=== PATIENT | female | born 1975 | race African-American/Black ===

== ENCOUNTER 2017-02-10 14:16 | Inpatient (IN) | payer MEDICAID ==
[~2017-02-10] VITALS: Ht 165.1 cm; Wt 90.0 kg
[2017-02-10 15:15] LABS: Basophils # (auto) 0 uL; DEFINITIVE VIEW TRANSMISSION; Eosinophils # (auto) 0.2 uL; Lymphocytes # (auto) 4.1 uL; Mean Platelet Volume 8.4 fL (7.4-10.4)
[2017-02-10 15:17] LABS: Basophils % (auto) 0.3 % (0.0-2.0); Eosinophils % (auto) 1.7 % (0.0-7.0); Hematocrit 33.1 % (36.0-46.0); Hemoglobin 10.3 g/dL (12.2-16.2); Lymphocytes % (auto) 30.2 % (10.0-50.0); Mean Corpuscular Hemoglobin 20.7 pg (28.0-32.0); Mean Corpuscular Volume 66.7 fL (80.0-100.0); Monocytes # (auto) 0.1 uL; Monocytes % (auto) 0.7 % (0.0-12.0); Neutrophils # (auto) 9.2 uL; Neutrophils % (auto) 67.1 % (37.0-80.0); Platelet Count (auto) 419 10^3/uL (140-450); Red Cell Distribution Width 18.8 % (11.6-16.0); White Blood Cell 13.8 10^3/uL (4.4-10.8)
[2017-02-10 15:36] LABS: Albumin 3.3 g/dL (3.4-5.0); BUN/Creatinine Ratio 11.3; Bilirubin, Total 0.6 mg/dL (0.2-1.0); Calcium 8.7 mg/dL (8.5-10.1); Potassium 3.7 mmol/L (3.5-5.1); Total Protein 7.3 g/dL (6.4-8.2)
[2017-02-10 15:37] LABS: Urine Bilirubin Negative (Negative); Urine Color Yellow (Yellow); Urine Glucose Normal (Normal); Urine Ketone TRACE (Negative); Urine Mucus FEW (None Seen); Urine Nitrite Negative (Negative); Urine RBC 763 /hpf (0 - 4); Urine Squamous Epithelial Cell FEW /hpf (<5)
[2017-02-10 15:44] LABS: Urine Blood 3+ /uL (Negative)
[2017-02-10 16:27] LABS: Platelet Estimate Adequate
[2017-02-10 16:29] LABS: Microcytosis Marked
[2017-02-10 16:30] LABS: Anisocytosis Moderate; Hypochromia Moderate; Ovalocytes MODERATE
[2017-02-10] MEDS ORDERED: KETOROLAC TROMETH 30 MG/ML 1ML VIAL IV ONE ×2 (16:45→20:00)
[2017-02-10] MEDS ORDERED: SODIUM CHLORIDE 0.9% 1,000 ML IV ONE (16:45)
[2017-02-10] MEDS ORDERED: LEVOFLOXACIN 500MG 100 ML IV ONE (16:45)
[2017-02-10] MEDS ORDERED: cefTRIAXone 1GM/50ML D5W 50 ML IV ONE ×2 (17:30→19:15)
[2017-02-10] MEDS ORDERED: LORazepam 0.5 MG TAB PO PRN (19:15)
[2017-02-10] MEDS ORDERED: MORPHINE SULF INJ 2 MG/ML SYRINGE 1ML IV PRN (19:15)
[2017-02-10] MEDS ORDERED: NITROGLYCERIN 0.4 MG SL TAB SL PRN (19:15)
[2017-02-10] MEDS ORDERED: TEMAZEPAM 15 MG CAP PO PRN (19:15)
[2017-02-10] MEDS ORDERED: diphenhdrAMINE HCL 50 MG/1 ML VL ONE (19:34)
[2017-02-10] MEDS ORDERED: diphenhdrAMINE HCL 50 MG/1 ML VL IV ONE (20:00)
[2017-02-10] MEDS: SODIUM CHLORIDE 0.9% 1,000 ML IV SCH (20:21)
[2017-02-10] MEDS: FAMOTIDINE (10MG/ML) 2ML VL IV SCH (20:21)
[2017-02-10] MEDS: MORPHINE SULFATE 4 MG/ML SYRG IV PRN (20:21)
[2017-02-10 21:40] VITALS: BP 148/82
[2017-02-10 21:51] LABS: INR 0.95 (0.9-1.15); Partial Thromboplastin Time 26.9 sec (22.64-33.71); Prothrombin Time 10.3 sec (9.37-12.3)
[2017-02-10 22:00] VITALS: BP 148/82
[2017-02-10 23:18] VITALS: BP 148/82
[2017-02-11] VITALS (7 sets, daily range): BP systolic 119–156; BP diastolic 57–74
[2017-02-11] MEDS: metroNIDAZOLE 500MG/100ML 100 ML IV SCH ×5 (00:09→23:33)
[2017-02-11] MEDS: MORPHINE SULFATE 4 MG/ML SYRG IV PRN ×4 (00:10→23:38)
[2017-02-11 06:13] LABS: Basophils # (auto) 0.1 uL; Basophils % (auto) 0.6 % (0.0-2.0); DEFINITIVE VIEW TRANSMISSION; Eosinophils # (auto) 0.4 uL; Eosinophils % (auto) 2.7 % (0.0-7.0); Hemoglobin 8.8 g/dL (12.2-16.2); Lymphocytes # (auto) 5.1 uL; Mean Corpuscular Hemoglobin 20.6 pg (28.0-32.0); Mean Corpuscular Hgb Conc. 31.5 g/dL (32.0-36.0); Mean Corpuscular Volume 65.2 fL (80.0-100.0); Mean Platelet Volume 8.5 fL (7.4-10.4); Monocytes # (auto) 0.7 uL; Monocytes % (auto) 5.3 % (0.0-12.0); Neutrophils # (auto) 7.1 uL; Neutrophils % (auto) 53.4 % (37.0-80.0); Platelet Count (auto) 414 10^3/uL (140-450); Red Cell Distribution Width 18.5 % (11.6-16.0); White Blood Cell 13.4 10^3/uL (4.4-10.8)
[2017-02-11] MEDS: SODIUM CHLORIDE 0.9% 1,000 ML IV SCH ×2 (06:19→15:15)
[2017-02-11] MEDS: FAMOTIDINE (10MG/ML) 2ML VL IV SCH ×2 (06:31→21:51)
[2017-02-11 06:35] LABS: Albumin 2.8 g/dL (3.4-5.0); BUN/Creatinine Ratio 12.8; Bilirubin, Total 0.5 mg/dL (0.2-1.0); Calcium 8.3 mg/dL (8.5-10.1); Potassium 3.5 mmol/L (3.5-5.1); Total Protein 6.3 g/dL (6.4-8.2)
[2017-02-11] MEDS: cefTRIAXone 1GM/50ML D5W 50 ML IV SCH (08:39)
[2017-02-11] MEDS: MORPHINE SULF INJ 2 MG/ML SYRINGE 1ML IV PRN (13:52)
[2017-02-11] MEDS ORDERED: SUCCINYLCHOLINE CHLORIDE 20 MG/ML 10ML VIAL IV ONE (18:04)
[2017-02-11] MEDS ORDERED: MIDAZOLAM HCL 1MG/1ML-2 ML VIAL ONE (18:05)
[2017-02-11] MEDS ORDERED: fentaNYL CITRATE 100 MCG/2 ML VL ONE (18:05)
[2017-02-11] MEDS ORDERED: ROCURONIUM 10MG/ML 10ML VIAL IV ONE (18:09)
[2017-02-11] MEDS ORDERED: PROPOFOL 10 MG/ML 20 ML IV ONE (18:10)
[2017-02-11] MEDS ORDERED: cefTRIAXone SOD 1,000 MG VL ONE (18:14)
[2017-02-11] MEDS ORDERED: BUPIVACAINE 0.25% INJ 50ML VIAL ONE (18:37)
[2017-02-11] MEDS ORDERED: NEOSTIGMINE 1 MG/ML INJ (10mg/10ML VIAL) ONE (18:45)
[2017-02-11] MEDS ORDERED: ONDANSETRON HCL 4 MG/2 ML VIAL ONE (18:45)
[2017-02-11] MEDS ORDERED: GLYCOPYRROLATE 0.2 MG/ML 1ML VIAL ONE (18:46)
[2017-02-11] MEDS ORDERED: HYDROmorphone HCL 2 MG/ML VL ONE (20:03)
[2017-02-11] MEDS: HYDROmorphone HCL 2 MG/ML VL IV PRN ×4 (20:10→20:41)
[2017-02-11] MEDS ORDERED: METOCLOPRAMIDE HCL 5MG/ml INJ 2ml VIAL IV PRN (20:15)
[2017-02-11] MEDS: PROMETHAZINE HCL 25 MG/ML 1ML IV PRN (21:51)
[2017-02-12] MEDS: SODIUM CHLORIDE 0.9% 1,000 ML IV SCH ×3 (01:15→23:00)
[2017-02-12 05:17] VITALS: BP 154/84
[2017-02-12 06:15] LABS: Basophils # (auto) 0.1 uL; Basophils % (auto) 0.5 % (0.0-2.0); DEFINITIVE VIEW TRANSMISSION; Eosinophils # (auto) 0.3 uL; Eosinophils % (auto) 1.4 % (0.0-7.0); Hematocrit 28.5 % (36.0-46.0); Hemoglobin 8.9 g/dL (12.2-16.2); Lymphocytes # (auto) 4.8 uL; Lymphocytes % (auto) 26.7 % (10.0-50.0); Mean Corpuscular Hemoglobin 20.7 pg (28.0-32.0); Mean Corpuscular Hgb Conc. 31.1 g/dL (32.0-36.0); Mean Corpuscular Volume 66.6 fL (80.0-100.0); Mean Platelet Volume 8.9 fL (7.4-10.4); Monocytes # (auto) 0.7 uL; Neutrophils % (auto) 67.4 % (37.0-80.0); Platelet Count (auto) 418 10^3/uL (140-450); Red Cell Distribution Width 18.1 % (11.6-16.0); White Blood Cell 17.8 10^3/uL (4.4-10.8)
[2017-02-12] MEDS: FAMOTIDINE (10MG/ML) 2ML VL IV SCH ×2 (06:33→20:27)
[2017-02-12] MEDS: metroNIDAZOLE 500MG/100ML 100 ML IV SCH ×3 (06:33→18:00)
[2017-02-12] MEDS: MORPHINE SULFATE 4 MG/ML SYRG IV PRN ×3 (06:34→15:56)
[2017-02-12 06:36] LABS: Potassium 3.8 mmol/L (3.5-5.1)
[2017-02-12 06:45] LABS: Albumin 2.7 g/dL (3.4-5.0); BUN/Creatinine Ratio 11.9; Calcium 8.1 mg/dL (8.5-10.1)
[2017-02-12 06:48] LABS: Bilirubin, Total 0.5 mg/dL (0.2-1.0); Total Protein 5.9 g/dL (6.4-8.2)
[2017-02-12] MEDS: cefTRIAXone 1GM/50ML D5W 50 ML IV SCH (08:35)
[2017-02-12] MEDS: PROMETHAZINE HCL 25 MG/ML 1ML IV PRN ×2 (11:07→15:56)
[2017-02-12 13:00] VITALS: BP 154/85
[2017-02-12 16:41] VITALS: BP 140/88
[2017-02-12 20:00] VITALS: BP 140/65
[2017-02-12] MEDS: MORPHINE SULF INJ 2 MG/ML SYRINGE 1ML IV PRN (20:28)
[2017-02-12 21:50] VITALS: BP 140/65
[2017-02-13] MEDS: metroNIDAZOLE 500MG/100ML 100 ML IV SCH ×4 (00:25→17:10)
[2017-02-13] MEDS: MORPHINE SULF INJ 2 MG/ML SYRINGE 1ML IV PRN ×3 (00:44→10:18)
[2017-02-13 04:49] VITALS: BP 153/84
[2017-02-13 06:19] LABS: Basophils # (auto) 0.1 uL; Basophils % (auto) 0.8 % (0.0-2.0); DEFINITIVE VIEW TRANSMISSION; Eosinophils # (auto) 0.4 uL; Eosinophils % (auto) 3.5 % (0.0-7.0); Hematocrit 28.7 % (36.0-46.0); Hemoglobin 8.9 g/dL (12.2-16.2); Lymphocytes # (auto) 2.5 uL; Mean Corpuscular Hemoglobin 20.6 pg (28.0-32.0); Mean Corpuscular Volume 66.4 fL (80.0-100.0); Mean Platelet Volume 8.5 fL (7.4-10.4); Monocytes # (auto) 0.8 uL; Monocytes % (auto) 6.9 % (0.0-12.0); Neutrophils % (auto) 67.8 % (37.0-80.0); Platelet Count (auto) 417 10^3/uL (140-450); Red Cell Distribution Width 18.2 % (11.6-16.0); White Blood Cell 11.9 10^3/uL (4.4-10.8)
[2017-02-13 06:28] LABS: Potassium 3.4 mmol/L (3.5-5.1)
[2017-02-13 06:30] LABS: Albumin 2.9 g/dL (3.4-5.0); BUN/Creatinine Ratio 7.8
[2017-02-13 06:37] LABS: Bilirubin, Total 0.3 mg/dL (0.2-1.0); Total Protein 6.2 g/dL (6.4-8.2)
[2017-02-13] MEDS: FAMOTIDINE (10MG/ML) 2ML VL IV SCH (06:43)
[2017-02-13] MEDS: SODIUM CHLORIDE 0.9% 1,000 ML IV SCH ×2 (06:43→17:10)
[2017-02-13 08:00] VITALS: BP 170/98
[2017-02-13] MEDS: cefTRIAXone 1GM/50ML D5W 50 ML IV SCH (08:55)
[2017-02-13 09:01] VITALS: BP 170/98
[2017-02-13 11:38] VITALS: BP 155/87
[2017-02-13] MEDS: MORPHINE SULFATE 4 MG/ML SYRG IV PRN ×2 (14:18→18:31)
[2017-02-13 16:21] VITALS: BP 150/86
[2017-02-13 17:58] VITALS: BP 155/87
== END 2017-02-13 19:30 | disposition home or self-care (01) | DRG 710 ==
LOC: EDBD 14:16 → ER 14:16 → TELE 14:17 → TELE-WESTW 21:40 → WEST WING 02-11 12:06
PROVIDERS: ADMIT Internal Medicine; ATTEND Internal Medicine Pulmonary Disease
PROC: 0JN83ZZ Release Abdomen Subcutaneous Tissue and Fascia, Percutaneous Approach (ICD-10-PCS; 2017-02-11)
PROC: 0W9G4ZZ Drainage of Peritoneal Cavity, Percutaneous Endoscopic Approach (ICD-10-PCS; 2017-02-11)
PROC: 0DTJ4ZZ Resection of Appendix, Percutaneous Endoscopic Approach (ICD-10-PCS; principal; 2017-02-11 18:23)
DX: A41.9 Sepsis, unspecified organism (principal); E87.0 Hyperosmolality and hypernatremia; E44.0 Moderate protein-calorie malnutrition; K35.3 Acute appendicitis with localized peritonitis; D62 Acute posthemorrhagic anemia; D25.9 Leiomyoma of uterus, unspecified; N39.0 Urinary tract infection, site not specified; N93.8 Other specified abnormal uterine and vaginal bleeding; D25.0 Submucous leiomyoma of uterus; Z68.33 Body mass index [BMI] 33.0-33.9, adult; Z83.3 Family history of diabetes mellitus; Z71.89 Other specified counseling; Z98.51 Tubal ligation status; Z88.1 Allergy status to other antibiotic agents
CPT/HCPCS: 36415; 74176; 76705; 76830; 76856; 80053; 81001; 81025; 84702; 85025; 85610; 85730; 86850; 86900; 86901; 87086; 96365; 96367; 96375; 99291; J0330; J0696; J1885; J1956; J2250; J2405; J2704; J3490